=== PATIENT | female | born 1990 | race Caucasian/White ===

== ENCOUNTER 2025-03-09 08:50 | Day surgery (SDC) | payer MEDICAID, SELFPAY ==
--- NOTE | 2025-03-06 07:00 | EKG_ITS ---
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
[2025-03-06 09:49] VITALS: BMI 36.6
[2025-03-06 10:22] LABS: Collection Type, Urine Clean Catch
[2025-03-06 10:56] LABS: Basophils # (Auto) 0.1 Thou/mm3 (0.0-0.2); Basophils % (Auto) 1 % (0-2.5); Eosinophils # (Auto) 0.3 Thou/mm3 (0.0-0.5); Eosinophils % (Auto) 3 % (0-10); Immature Granulocytes % (Auto) 0 % (0-0); Immature Granulocytes Auto 0.02 Thou/mm3 (0.00-0.00); Lymphocytes # (Auto) 1.7 Thou/mm3 (1.0-4.8); Lymphocytes % (Auto) 20 % (10-50); Mean Corpuscular HGB Conc 35.9 g/dl (31.0-37.0); Mean Corpuscular Hemoglobin 31.8 pg (25.0-35.0); Mean Corpuscular Volume 89 fL (80-100); Monocytes # (Auto) 0.5 Thou/mm3 (0.0-0.8); Monocytes % (Auto) 5 % (0-12); Neutrophils # (Auto) 6.2 Thou/mm3 (1.8-7.7); Neutrophils % (Auto) 71 % (37-80); Nucleated Red Blood Cell % 0 /100 WBC (0); Platelet Count 351 Thou/mm3 (140-440); RDW Standard Deviation 39.4 fL (36.4-46.3); White Blood Count 8.7 Thou/mm3 (3.6-11.0)
[2025-03-06 11:03] LABS: Bacteria,Urine Rare; Bilirubin,Urine Negative (Negative); Blood,Urine Negative (Negative); Clarity,Urine Turbid (Clear/Hazy); Color,Urine Yellow (Lt Yel-Yel); Glucose, Urine Negative (Negative); Ketones,Urine Negative (Negative); Leukocyte Esterase,Urine Positive (Negative); Nitrite,Urine Negative (Negative); PH,Urine 6.5 (5.0-7.0); Protein,Urine Trace (Neg - Trace); RBC,Urine 5 /hpf (0-3); Specific Gravity,Urine 1.024 (1.001-1.035); Squamous Epithelial Cell,Urine 16 /hpf (0-5); Urobilinogen,Urine Negative mg/dL (0.0-1.0); WBC,Urine 2 /hpf (0-5)
[2025-03-06 11:04] LABS: Partial Thromboplastin Time 28.2 Seconds (22.0-36.0)
[2025-03-06 11:09] LABS: Alanine Aminotransferase 11 U/L (10-49); Albumin, Serum 4.4 gm/dL (3.5-5.0); Albumin/Globulin Ratio 1.5 (1.2-2.2); Alkaline Phosphatase 76 U/L (46-116); Anion Gap 8 (7-16); Aspartate Amino Transferase 12 U/L (0-34); BUN/Creatinine Ratio 9 Ratio (12-20); Bilirubin,Total 0.8 mg/dL (0.3-1.2); Blood Urea Nitrogen 10 mg/dL (9-23); Calcium 9.5 mg/dL (8.3-10.6); Calcium (Corrected) 9.5 mg/dL (8.5-10.1); Carbon Dioxide 26.6 mMol/L (20.0-31.0); Chloride 106 mMol/L (98-107); Creatinine (Component) 1.1 mg/dL (0.6-1.3); Estimated Creatinine Clearance 74.9 mL/min (>60); Glucose 95 mg/dL (74-106); Osmolality,Calculated 280 (275-295); Potassium 4.1 mMol/L (3.4-5.1); Sodium 141 mMol/L (136-145); Total Protein 7.4 gm/dL (5.7-8.2); eGFR > 60 See Note
[2025-03-09] VITALS (12 sets, daily range): BP systolic 90–119; BP diastolic 60–73; PULSE 81–114; RESP 12–20; TEMP 36.1–37.2; O2SAT 92–99; BMI 36.8
--- NOTE | 2025-03-09 12:59 | SUR.PHASEI ---
1259: Pt. AAOx4, vitals stable, breathing unlabored, no complaint of pain or nausea, dressing to ABD CDI, no active bleed noted, report received from Carlo GAO, Serene RN, Cristian VICTOR.
[2025-03-09] MEDS: ONDANSETRON INJ 2 MG/ML INJ 2 ML 4 MG IV (13:59)
--- NOTE | 2025-03-09 14:00 | ESOP_ITS ---
Date of Procedure 03/09/25 Pre Op Diagnosis Incarcerated large ventral hernia and an umbilical hernia. Post Op Diagnosis Same. Procedure Repair of 17 cm incarcerated ventral hernia and an umbilical hernia. Partial omentectomy. On 03/09/2025 Findings This is a 34-year-old white female with a large ventral incarcerated hernia. She had second umbilical hernia incarcerated that required omentectomy. The combine the length of both the hernias measured over 17 cm. Procedure Description The patient is interviewed in the preoperative area and the procedure was discussed in detail with the patient including expectation of outcomes. Explanation of the technique and complications. An informed consent was obtained. Anesthesia consent was obtained by the anesthesiologist. The hernia sites were marked on the surface. Patient is brought back to the operating room. The patient is positioned supine on the operating table and general anesthesia is administered in a satisfactory manner. The chest abdomen and thigh genitalia regions are prepped and draped in usual manner. IV antibiotics were given and a timeout procedure was carried out. The hernia defects were identified and marked on the surface to assess the extent of the procedure. Then the local anesthesia quarter percent Marcaine with epinephrine is used. Vertical incision is made around the umbilicus. Dissection is carried out in the subcutaneous tissue to the fascia and the 2 different defects are identified. Gentle dissection is carried out and hernia sacs are isolated. The sac is opened and was removed as specimen. There were significantly dense adhesions of the omentum within the hernia sac and surrounding subcutaneous tissue. The umbilical hernia is a separate hernia and contained incarcerated omentum with adhesions. Omentectomy was needed in order to release the hernia. This was done by ligating the omentum and dividing the after tying. The contents are reduced. Hemostasis is achieved. Dissection is carried out circumferentially from the peritoneal side to make sure there were no adhesions and bowel attached to the anterior abdominal wall. Lysis of adhesions is carried out on the peritoneal side releasing the omental adhesions circumferentially to about 10 cm around. Both the hernias defects were incorporated into one defect. The defect is measured. It is about 17 cm in length and 6 cm in the width. The hernia sac was removed. The laps and instrument counts are obtained they are correct x2 and then I selected a Ventrio ST largest oval patch to be placed in the underlay position. The patch is oval and measures about 17.5 cm in maximum length. The patch is secured in the preperitoneal space and attached to the fascia in circumferential manner by interrupted O' Ethibond stitches. Laps and instrument counts were correct ?2. The defect in the fascia is closed over the patch incorporating the patch with the midline fascia repair. Patch was previously irrigated with gentamicin solution. Hemostasis is achieved. Operative field is thoroughly irrigated with saline solution and the subcutaneous tissues approximated with 3-0 chromic interrupted suture. The skin is approximated by 4-0 Monocryl subcuticular stitches. Dermabond is applied. Sterile dressing and abdominal binder is applied. Patient tolerated the procedure very well complications none. Patient is transferred to recovery room in a satisfactory condition. Anesthesia GETA Drains None. 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
[2025-03-09] MEDS: METOCLOPRAMIDE INJ 5 MG/ML VIAL 2 ML 10 MG IVP (14:36)
[2025-03-09] MEDS: HYDROcodone/APAP 10/325 TAB PO (14:37)
--- NOTE | 2025-03-09 14:55 | SUR.PHASEII ---
1455: Pt. AAOx4, vitals stable, breathing unlabored, no complaint of pain or nausea, dressing to ABD CDI, no active bleed noted, pt. tolerated sips of water well, pt. ambulated to wheelchair with steady gait and no assist, no complications. Gave discharge instructions to the pt. and her ride, both verbalized understanding and had no further questions. Pt. left with all personal belongings.
== END 2025-03-09 14:55 | disposition home or self-care (01) ==
PROVIDERS: Referring Provider Specialist; Visit Provider Specialist
PROC: (CPT 49596; principal; 2025-03-09 11:00)
PROC: (CPT 49596; 2025-03-09 11:00)
DX: K42.0 Umbilical hernia with obstruction, without gangrene (principal); K43.6 Other and unspecified ventral hernia with obstruction, without gangrene; Z01.810 Encounter for preprocedural cardiovascular examination
CPT/HCPCS: 49596; 36415; 80053; 81001; 85025; 85610; 85730; 93005; A4217; A4649; C1781; J0131; J0694; J1580; J1885; J2250; J2405; J2704; J2765; J3010; J3490; J7030; A9270